=== PATIENT | male | born 1975 | race Caucasian/White ===

== ENCOUNTER 2018-03-31 23:51 | Emergency (ER) | payer OTHER ==
[~2018-03-31] VITALS: Ht 167.6 cm; Wt 90.7 kg
[2018-03-31 23:51] VITALS: BP 144/76
[~2018-03-31 23:51] MED LIST: ANAPROX DS550 MG PO; BACTRIM DS 8001 TA1 PO; CIPRODEX 0.3%-7.5 ML OT; CIPROFLOXACIN500 MG PO; CLARITIN10 MG PO; CLINDAMYCIN150 MG PO; DARVOCET N 1001 TAB PO; DAYPRO600 M1 PO; EES400 MG PO; FLEXERIL10 MG PO; LIPITOR20 MG PO; MEDROL DOSEPAK4 MG PO; MOTRIN800 MG PO; NAPROSYN500 MG PO; NKHM; NORCO 325 MG-51 TAB PO; PARAFON FORTE500 MG PO; ROBAXIN750 MG PO; SYNTHROID,LEVO50 MCG PO; TRAMADOL HCL50 MG PO; VICODIN 5/500 505 MG PO; VICODIN 500 MG-1 TAB PO; VOLTAREN50 M1 PO; ZITHROMAX Z PA250 MG PO; ZOFRAN4 MG PO
[2018-04-01] MEDS ORDERED: NORCO 5-325 TA1 EACH PO (00:10)
== END 2018-04-01 00:37 | disposition home or self-care (01) ==
LOC: ED 23:51
DX: T23.231A Burn of second degree of multiple right fingers (nail), not including thumb, initial encounter (principal); T23.172A Burn of first degree of left wrist, initial encounter; Z79.899 Other long term (current) drug therapy; Z88.0 Allergy status to penicillin; W29.2XXA Contact with other powered household machinery, initial encounter; Y93.89 Activity, other specified; Y92.69 Other specified industrial and construction area as the place of occurrence of the external cause; Y99.9 Unspecified external cause status

== ENCOUNTER 2018-06-18 15:13 | Emergency (ER) | payer OTHER ==
[~2018-06-18] VITALS: Ht 167.6 cm; Wt 99.8 kg
[~2018-06-18 15:13] MED LIST changes: +NORCO 5-325 TA1 EACH PO
[2018-06-18 15:18] VITALS: BP 136/80
[2018-06-18] MEDS ORDERED: CHLORZOXAZONE500 M2 PO (18:15)
[2018-06-18] MEDS ORDERED: PREDNISONE10 MG PO (18:15)
== END 2018-06-18 18:36 | disposition home or self-care (01) ==
LOC: ED 15:13
DX: M54.42 Lumbago with sciatica, left side (principal); R03.0 Elevated blood-pressure reading, without diagnosis of hypertension; F17.200 Nicotine dependence, unspecified, uncomplicated; Z88.0 Allergy status to penicillin; Z79.899 Other long term (current) drug therapy

== ENCOUNTER 2018-10-16 15:46 | Emergency (ER) | payer OTHER ==
[~2018-10-16 15:46] MED LIST changes: +CHLORZOXAZONE500 M2 PO; +PREDNISONE10 MG PO
[2018-10-16 15:47] VITALS: BP 116/67
[2018-10-16] MEDS ORDERED: FLONASE ALLERG9.9 ML NAS (15:56)
[2018-10-16] MEDS ORDERED: ZITHROMAX250 MG PO (15:56)
[2018-10-16] MEDS ORDERED: ZYRTEC10 MG PO (15:56)
== END 2018-10-16 16:11 | disposition home or self-care (01) ==
LOC: ED 15:46
DX: J01.00 Acute maxillary sinusitis, unspecified (principal); J01.10 Acute frontal sinusitis, unspecified; F17.200 Nicotine dependence, unspecified, uncomplicated; Z88.0 Allergy status to penicillin; Z79.899 Other long term (current) drug therapy

== ENCOUNTER → 2019-04-03 | Outpatient (CLI) | payer OTHER ==
[~2019-04-03] MED LIST changes: +FLONASE ALLERG9.9 ML NAS; +IBU800 M1 PO; +PROAIR HFA8.5 GM INH; +TIZANIDINE HCL4 MG PO; +ZITHROMAX250 MG PO; +ZYRTEC10 MG PO
== END | disposition home or self-care (01) ==
LOC: RAD 11:26
DX: M47.812 Spondylosis without myelopathy or radiculopathy, cervical region (principal); M25.511 Pain in right shoulder; R51 Headache

== ENCOUNTER 2019-05-27 13:40 | Emergency (ER) | payer OTHER ==
[~2019-05-27] VITALS: Ht 167.6 cm; Wt 90.7 kg
--- NOTE | ~2019-05-27 | EKG ---
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
[~2019-05-27 13:40] MED LIST changes: -IBU800 M1 PO; -PROAIR HFA8.5 GM INH; -TIZANIDINE HCL4 MG PO
[2019-05-27 14:35] LABS: BASO # 0.1 10*3/uL (0.0-0.1); BASO % 0.4 % (0.0-1.0); EOS # 0.1 10*3/uL (0.0-0.4); EOS % 0.6 % (1.0-4.0); HEMATOCRIT 48.9 % (42.0-52.0); HEMOGLOBIN 16.6 g/dl (14.0-18.0); LYMPH # 1.2 10*3/uL (1.3-4.4); LYMPH % 5.9 % (27.0-41.0); MEAN CELL VOLUME 88.7 fl (80.0-94.0); MEAN CORPUSCULAR HGB 30.1 pg (27.0-31.0); MEAN CORPUSCULAR HGB CONC 33.9 g/dl (33.0-37.0); MEAN PLATELET VOLUME 11.4 fl (9.6-12.3); MONO # 1.3 10*3/uL (0.1-1.0); MONO % 6.3 % (3.0-9.0); NEUT # 17.8 10*3/uL (2.3-7.9); NEUT % 86.5 % (47.0-73.0); PLATELET COUNT AUTOMATED 184 10*3/uL (130-400); RED BLOOD COUNT 5.51 10*6/uL (4.50-5.90); RED CELL DISTRI WIDTH 12.7 % (0-14.5); WHITE BLOOD COUNT 20.6 10*3/uL (4.8-10.8)
[2019-05-27 14:47] LABS: ACT PARTIAL THROMBO TIME 25.5 SECONDS (20.0-32.1); ALBUMIN 3.4 gm/dl (3.1-4.5); ALKALINE PHOSPHATASE 66 U/L (45-117); BUN 4 mg/dl (7-24); CHLORIDE 105 mmol/L (98-107); CREATININE 0.97 mg/dL (0.70-1.30); INTERNATIONAL NORM RATIO 0.9 (2.0-3.5); LIPASE 86 U/L (73-393); POTASSIUM 3.9 mmol/L (3.5-5.1); SGOT/AST 13 IU/L (3-35); SGPT/ALT 18 U/L (12-78); SODIUM 139 mmol/L (136-145)
[2019-05-27 15:08] LABS: BILIRUBIN NEGATIVE (NEGATIVE); BLOOD NEGATIVE (NEGATIVE); CLARITY CLEAR (CLEAR); COLOR YELLOW (YELLOW); GLUCOSE NEGATIVE (NEGATIVE); KETONE NEGATIVE (NEGATIVE); LEUKO ESTERASE NEGATIVE (NEGATIVE); NITRITE NEGATIVE (NEGATIVE); UROBILINOGEN 0.2 E.U./dl (0.2-1.0)
[2019-05-27 15:14] LABS: BACTERIA TRACE; EPITHELIAL CELLS 0-2; RBC 0-2 rbc/hpf (0-2); WBC 0-2 wbc/hpf (0-5)
[2019-05-27] MEDS ORDERED: IBU800 M1 PO (16:12)
[2019-05-27] MEDS ORDERED: PROAIR HFA8.5 GM INH (16:12)
[2019-05-27] MEDS ORDERED: TIZANIDINE HCL4 MG PO (16:13)
[2019-05-27 19:18] VITALS: BP 128/78
== END 2019-05-27 19:55 | disposition short-term general hospital (02) ==
LOC: ED 13:40
PROVIDERS: Nurse Practitioner Family
DX: N49.2 Inflammatory disorders of scrotum (principal); Z79.899 Other long term (current) drug therapy; Z88.0 Allergy status to penicillin

== ENCOUNTER 2024-07-24 11:34 | Emergency (ER) | payer OTHER ==
[~2024-07-24] VITALS: Ht 177.8 cm; Wt 81.6 kg
[~2024-07-24 11:34] MED LIST changes: +IBU800 M1 PO; +PROAIR HFA8.5 GM INH; +TIZANIDINE HCL4 MG PO
[2024-07-24 11:39] VITALS: BP 121/59
[2024-07-24] MEDS ORDERED: SODIUM CHLORIDE 0.9% 1,000 ML IV ONE (11:45)
[2024-07-24] MEDS ORDERED: Ketorolac Tromethamine 30 MG/ML VIAL IV ONE (11:45)
[2024-07-24] MEDS ORDERED: diphenhydrAMINE hydrochloride 50 MG/ML VIAL IV ONE (11:45)
[2024-07-24] MEDS ORDERED: Dexamethasone Sodium Phospha 20 MG/5 ML VIAL IV ONE (11:45)
== END 2024-07-24 14:03 | disposition home or self-care (01) ==
LOC: ED 11:34
DX: R51.9 Headache, unspecified (principal); Z20.822 Contact with and (suspected) exposure to COVID-19; J45.909 Unspecified asthma, uncomplicated; Z88.0 Allergy status to penicillin; Z98.890 Other specified postprocedural states

== ENCOUNTER 2025-07-05 12:14 | Emergency (ER) | payer OTHER ==
[~2025-07-05] VITALS: Ht 167.6 cm; Wt 77.1 kg
[2025-07-05 12:24] VITALS: BP 127/92
[2025-07-05 12:52] LABS: BASO # 0.1 10*3/uL (0.0-0.1); BASO % 0.7 % (0.0-1.0); EOS # 0.1 10*3/uL (0.0-0.4); EOS % 0.6 % (1.0-4.0); MEAN CELL VOLUME 90.9 fl (80.0-94.0); MEAN CORPUSCULAR HGB 29.1 pg (27.0-31.0); MEAN PLATELET VOLUME 11.1 fl (9.6-12.3); MONO # 1.0 10*3/uL (0.1-1.0); MONO % 6.3 % (3.0-9.0); NEUT # 12.9 10*3/uL (2.3-7.9); NEUT % 79.2 % (47.0-73.0); NUCLEATED RED BLOOD CELL 0.0 % (0.0-0.0); NUCLEATED RED BLOOD CELL 0.0 10*3/uL (0.0-0.0); PLATELET COUNT AUTOMATED 238 10*3/uL (130-400); RED CELL DISTRI WIDTH 12.4 % (0-14.5)
[2025-07-05 13:12] LABS: BUN 10 mg/dl (9-23)
[2025-07-05] MEDS ORDERED: CLINDAMYCIN HCL 300 MG CAPSULE PO ONE (14:10)
[2025-07-05] MEDS ORDERED: CLINDAMYCIN HC300 MG PO (14:11)
[2025-07-05] MEDS ORDERED: KLOR-CON 1010 ME1 PO (15:20)
== END 2025-07-05 14:26 | disposition home or self-care (01) ==
LOC: ED 12:14
PROVIDERS: Nurse Practitioner Family
DX: L03.115 Cellulitis of right lower limb (principal); E78.5 Hyperlipidemia, unspecified; E03.9 Hypothyroidism, unspecified; F17.200 Nicotine dependence, unspecified, uncomplicated; Z88.0 Allergy status to penicillin